=== PATIENT | male | born 1945 | race African-American/Black ===

== ENCOUNTER → 2017-01-23 | Outpatient (CLI) | payer MEDICARE, MEDICAID | END | disposition home or self-care (01) | LOC: US 09:00 | PROVIDERS: ATTEND Surgery | DX: K41.20 Bilateral femoral hernia, without obstruction or gangrene, not specified as recurrent (principal); K42.9 Umbilical hernia without obstruction or gangrene | CPT/HCPCS: 76857 ==

== ENCOUNTER 2017-03-19 05:38 | Day surgery (SDC) | payer MEDICARE, MEDICAID ==
[~2017-03-19] VITALS: Ht 175.3 cm; Wt 89.8 kg
[2017-03-19] MEDS ORDERED: LACTATED RINGERS 1,000 ML IV SCH (08:00)
[2017-03-19] MEDS ORDERED: ZET10 PO (08:47)
[2017-03-19] MEDS ORDERED: AMLO10TA80 PO (08:47)
[2017-03-19] MEDS ORDERED: BENA40TA3 PO (08:47)
[2017-03-19] MEDS ORDERED: BICA50TA2 PO (08:47)
[2017-03-19] MEDS ORDERED: HORMONE SHOT IM (08:47)
[2017-03-19] MEDS ORDERED: BUPIVACAINE HCL 0.5% (5MG/ML) 50ML ONE (10:16)
[2017-03-19] MEDS ORDERED: SKIN ADHESIVE 0.7 GM EA TOP ONE (10:16)
[2017-03-19] MEDS ORDERED: CEFAZOLIN SODIUM 1000MG/VIAL ONE (10:55)
[2017-03-19] MEDS ORDERED: DEXAMETHASONE 4MG/ML 1ML VIAL ONE (10:55)
[2017-03-19] MEDS ORDERED: BUPIVACAINE HCL 0.5% 290 ML in ON-Q PM015 DRUG DELIV DEVICE 1 EA IR STA (11:27)
[2017-03-19] MEDS ORDERED: ONDANSETRON HCL 4MG/2ML VIAL IV PRN (11:30)
[2017-03-19] MEDS ORDERED: HYDROMORPHONE HCL/PF 2MG/ML CPJ IV PRN (11:30)
[2017-03-19] MEDS ORDERED: LABETALOL 5MG/ML SYR 20 MG/4 ML SYRINGE IV PRN (11:30)
[2017-03-19] MEDS ORDERED: BUPIVACAINE HCL 0.5% 290 ML in ON-Q PUMP (PM015=P270X4D) IR SCH (11:45)
[2017-03-19] MEDS: MEPERIDINE HCL/PF 25MG/ML CPJ IV PRN ×2 (13:17→14:53)
[2017-03-19 15:06] VITALS: BP 158/84
== END 2017-03-19 17:15 | disposition home or self-care (01) ==
LOC: OR 05:38
PROVIDERS: ATTEND Surgery
DX: K41.20 Bilateral femoral hernia, without obstruction or gangrene, not specified as recurrent (principal); I10 Essential (primary) hypertension; M19.90 Unspecified osteoarthritis, unspecified site; Z85.46 Personal history of malignant neoplasm of prostate
CPT/HCPCS: 49550; C1781; G0168; J0690; J1100; J1170; J2175; J2405; J3490; J7120

== ENCOUNTER → 2022-03-27 | Day surgery (SDC) | payer MEDICARE, MEDICAID ==
[~2022-03-27] VITALS: Ht 175.3 cm; Wt 83.0 kg
[~2022-03-27] MED LIST: ACETAMINOPHEN 325MG TABLET PO PRN; AMLO10TA80 PO; ASPI-1497 PO; ATROPINE SULFATE 1MG/10ML SYR IV PRN; BENA40TA91 PO; BICA50TA48 PO; BRIM5DRO6 EACHEYE; CALC-1042 PO; CLON-457 MT; CLON0.1T PO; EZET10TA13 PO; FENTANYL CITRATE/PF 50MCG/ML 2ML VIAL ONE; HEPARIN 1000 UNITS/ML 10ML ONE; HORMONE SHOT IM; IODIXANOL 320MG/ML 100 ML BOTTLE IV ONE; LIDOCAINE HCL/PF 1% 10 MG/ML 5ML VIAL ONE; MIDAZOLAM HCL 2 MG/2 ML VIAL ONE; OMEG100017 PO; ONDANSETRON HCL 4MG/2ML INJ IV PRN
== END | disposition home or self-care (01) ==
LOC: CCL 05:08
PROVIDERS: ATTEND Specialist
DX: I73.9 Peripheral vascular disease, unspecified (principal); I10 Essential (primary) hypertension; E78.5 Hyperlipidemia, unspecified; Z79.899 Other long term (current) drug therapy; Z98.890 Other specified postprocedural states
CPT/HCPCS: 36245; 75710; C1725; C1760; C1769; C1893; C1894; J1644; J2250; J3010; J3490; Q9967; Z7610; 99152; 99153; G0500

== ENCOUNTER 2022-05-09 07:35 | Inpatient (IN) | payer MEDICARE, MEDICAID ==
[~2022-05-09] VITALS: Ht 175.3 cm; Wt 75.3 kg
[~2022-05-09 07:35] MED LIST changes: -ACETAMINOPHEN 325MG TABLET PO PRN; -ATROPINE SULFATE 1MG/10ML SYR IV PRN; -CLON-457 MT; -FENTANYL CITRATE/PF 50MCG/ML 2ML VIAL ONE; -HEPARIN 1000 UNITS/ML 10ML ONE; -IODIXANOL 320MG/ML 100 ML BOTTLE IV ONE; -LIDOCAINE HCL/PF 1% 10 MG/ML 5ML VIAL ONE; -MIDAZOLAM HCL 2 MG/2 ML VIAL ONE; -ONDANSETRON HCL 4MG/2ML INJ IV PRN
[2022-05-09] MEDS ORDERED: IODIXANOL 320MG/ML 100 ML BOTTLE IV ONE (07:53)
[2022-05-09] MEDS ORDERED: HEPARIN 1000 UNITS/ML 10ML ONE (07:54)
[2022-05-09] MEDS ORDERED: LIDOCAINE HCL 1% 20ML VIAL (Pyxis) INJ ONE (07:54)
[2022-05-09] MEDS ORDERED: MIDAZOLAM HCL 2 MG/2 ML VIAL ONE (08:38)
[2022-05-09] MEDS ORDERED: FENTANYL CITRATE/PF 50MCG/ML 2ML VIAL ONE (08:38)
[2022-05-09] MEDS ORDERED: CLOPIDOGREL 75MG TABLET ONE (10:13)
[2022-05-09] MEDS ORDERED: ASPIRIN 325MG EC TABLET PO ONE (10:13)
[2022-05-09] MEDS ORDERED: ONDANSETRON HCL 4MG/2ML INJ IV PRN (10:15)
[2022-05-09] MEDS ORDERED: ACETAMINOPHEN 325MG TABLET PO PRN (10:15)
[2022-05-09] MEDS ORDERED: ATROPINE SULFATE 1MG/10ML SYR IV PRN (10:15)
[2022-05-09 11:37] VITALS: BP 127/73
[2022-05-09 11:53] VITALS: BP 127/73
[2022-05-09 16:00] VITALS: BP 139/67
[2022-05-09 20:00] VITALS: BP 131/73
[2022-05-10] VITALS: BP 148/67
[2022-05-10 04:00] VITALS: BP 152/81
[2022-05-10 08:15] VITALS: BP 140/63
[2022-05-10 08:43] LABS: CHLORIDE 108 mEq/L (98-107)
[2022-05-10] MEDS ORDERED: ASPIRIN 325MG TABLET PO SCH ×2 (09:00→10:00)
[2022-05-10] MEDS ORDERED: CLOPIDOGREL 75MG TABLET PO SCH (09:00)
[2022-05-10 09:44] VITALS: BP 140/63
== END 2022-05-10 11:05 | disposition home health service (06) | DRG 254 ==
LOC: CCL 07:35 → 3WST 07:36
PROVIDERS: ADMIT Specialist; ATTEND Specialist
PROC: 04FK3ZZ Fragmentation of Right Femoral Artery, Percutaneous Approach (ICD-10-PCS; principal; 2022-05-09)
PROC: 047K3DZ Dilation of Right Femoral Artery with Intraluminal Device, Percutaneous Approach (ICD-10-PCS; 2022-05-09)
DX: I70.201 Unspecified atherosclerosis of native arteries of extremities, right leg (principal); E78.5 Hyperlipidemia, unspecified; I10 Essential (primary) hypertension; K57.90 Diverticulosis of intestine, part unspecified, without perforation or abscess without bleeding; N28.9 Disorder of kidney and ureter, unspecified; Z85.46 Personal history of malignant neoplasm of prostate
CPT/HCPCS: 36415; 37226; 75710; 80048; 85347; A4565; C1725; C1726; C1769; C1887; C1893; C1894; J1644; J2250; J2405; J3010; J3490; Q9967; C1761

== ENCOUNTER 2022-05-14 07:11 | Emergency (ER) | payer MEDICARE, MEDICAID ==
[~2022-05-14] VITALS: Ht 175.3 cm; Wt 86.0 kg
[~2022-05-14 07:11] MED LIST changes: -ASPI-1497 PO
[2022-05-14 07:20] VITALS: BP 128/78
== END 2022-05-14 09:12 | disposition left against medical advice (07) ==
LOC: ER 07:11
DX: Z53.21 Procedure and treatment not carried out due to patient leaving prior to being seen by health care provider (principal)
CPT/HCPCS: 99281

== ENCOUNTER 2024-02-23 07:12 | Emergency (ER) | payer MEDICARE, MEDICAID ==
[~2024-02-23] VITALS: Ht 175.3 cm; Wt 82.0 kg
[~2024-02-23 07:12] MED LIST changes: -EZET10TA13 PO; +EZET10TA81 PO
[2024-02-23 07:26] VITALS: O2SAT 100
[2024-02-23 07:29] VITALS: BP 145/68; PULSE 73; RESP 18; TEMP 98.3; O2SAT 99
[2024-02-23 08:19] LABS: CLARITY URINE CLOUDY (CLEAR); COLOR URINE YELLOW (YELLOW); GLUCOSE URINE NEGATIVE (NEGATIVE); KETONES URINE NEGATIVE (NEGATIVE); LEUKOCYTE ESTERASE URINE NEGATIVE (NEGATIVE); NITRITE URINE NEGATIVE (NEGATIVE); OCCULT BLOOD URINE NEGATIVE (NEGATIVE); PH URINE 7.5 (4.5-8.0); PROTEIN URINE NEGATIVE (NEGATIVE); SPECIFIC GRAVITY URINE 1.014 (1.005-1.030); UROBILINOGEN URINE 0.2 E.U./dL (0.2-1.0)
[2024-02-23 08:35] LABS: BACTERIA URINE 1+; RBC URINE NONE SEEN /hpf (0-2); SQUAMOUS EPITHELIAL CELL URINE NONE SEEN /lpf (RARE/1+); WBC URINE NONE SEEN /hpf (0-2)
== END 2024-02-23 08:58 | disposition home or self-care (01) ==
LOC: ER 07:12
DX: R60.0 Localized edema (principal); E78.00 Pure hypercholesterolemia, unspecified; I12.9 Hypertensive chronic kidney disease with stage 1 through stage 4 chronic kidney disease, or unspecified chronic kidney disease; N18.9 Chronic kidney disease, unspecified; I73.9 Peripheral vascular disease, unspecified; Z79.899 Other long term (current) drug therapy; Z68.26 Body mass index [BMI] 26.0-26.9, adult
CPT/HCPCS: 81003; 93970; 99284

== ENCOUNTER 2024-10-31 14:57 | Emergency (ER) | payer MEDICARE, MEDICAID ==
[~2024-10-31] VITALS: Ht 175.3 cm; Wt 85.0 kg
[2024-10-31 15:04] VITALS: O2SAT 99
[2024-10-31 15:08] VITALS: BP 152/106; PULSE 85; RESP 14; TEMP 37.2; O2SAT 99
[2024-10-31 19:28] LABS: BASOPHILS % 0.5 % (0.0-2.0); EOSINOPHILS % 6.3 % (0.0-5.0); HEMATOCRIT. 38.2 % (42.0-52.0); HEMOGLOBIN. 13.3 g/dL (14.0-18.0); LYMPHOCYTES % 29.6 % (20.0-50.0); MEAN PLATELET VOLUME 6.3 fl (7.4-10.4); MONOCYTES % 8.0 % (2.0-8.0); NEUTROPHILS % 55.6 % (40.0-76.0); PLATELET 308 x1000/uL (130-400); RED BLOOD CELL COUNT 3.78 mill/uL (4.7-6.1); RED CELL DISTRIBUTION WIDTH 12.2 % (11.6-14.6)
[2024-10-31 19:50] LABS: CREATININE 1.1 mg/dL (0.6-1.3); UREA NITROGEN BLOOD 7 mg/dL (9-23)
[2024-10-31 19:53] VITALS: TEMP 98.9
[2024-10-31] MEDS: ACETAMINOPHEN 325MG TABLET PO ONE (19:53)
[2024-10-31] MEDS ORDERED: D-ME473S50 PO (20:11)
[2024-10-31] MEDS ORDERED: ACET-2708 PO (20:11)
[2024-10-31 20:55] LABS: INFLUENZA TYPE A Presumptive Negative (Pres. Neg.)
[2024-10-31 20:57] LABS: INFLUENZA TYPE B Presumptive Negative (Pres. Neg.)
== END 2024-10-31 21:28 | disposition home or self-care (01) ==
LOC: ER 14:57
DX: J06.9 Acute upper respiratory infection, unspecified (principal); B34.9 Viral infection, unspecified; I10 Essential (primary) hypertension; Z98.890 Other specified postprocedural states; Z79.899 Other long term (current) drug therapy; Z20.822 Contact with and (suspected) exposure to COVID-19
CPT/HCPCS: 36415; 71045; 80048; 85025; 87426; 87804; 99284